=== PATIENT | male | born 1955 ===

== ENCOUNTER → 2020-01-03 08:00 | Outpatient (CLI) | payer OTHER ==
[~2020-01-03 08:00] MED LIST: HYDROCHLOROTH12.5 MG PO; LEXAPRO20 MG PO; PROTONIX40 MG PO; REMERON45 M1 PO; TYLENOL ARTHRI650 MG PO; ULTRAM50 MG PO; VASOTEC5 MG PO
== END | disposition home or self-care (01) ==
LOC: LAB 08:00 → ADM 10:30 → CIR.AMB 01-07 07:00 → EDSTATUS 01-14 10:30
PROVIDERS: ATTEND Surgery
DX: K43.6 Other and unspecified ventral hernia with obstruction, without gangrene (principal); Z20.828 Contact with and (suspected) exposure to other viral communicable diseases